=== PATIENT | female | born 1950 | race Caucasian/White ===

== ENCOUNTER 2016-10-27 00:38 | Emergency (ER) | payer BC ==
[~2016-10-27] VITALS: Ht 160 cm; Wt 79.8 kg
[2016-10-27 01:08] VITALS: BP 141/83
--- NOTE | 2016-10-27 02:29 | NUR ---
PATIENT TO ER BED 3
--- NOTE | 2016-10-27 02:30 | NUR ---
66Y F BIB SELF C/O UTI X 2 WEEKS DESPITE ABX GIVEN AT URGENT CARE. PT DENIES N/V/D; SKIN IS PINK/WARM/DRY; AAOX4 WITH EVEN AND STEADY GAIT; LUNGS CLEAR BL; HR EVEN AND REGULAR; PT DENIES ANY FEVER, CP, SOB, OR COUGH AT THIS TIME; PATIENT STATES PAIN OF 10/10 AT THIS TIME; VSS; PATIENT POSITIONED FOR COMFORT; HOB ELEVATED; BEDRAILS UP X2; BED DOWN. ER MD MADE AWARE OF PT STATUS.
--- NOTE | 2016-10-27 03:37 | NUR ---
Patient being evaluated by physician at bedside.
[2016-10-27] MEDS ORDERED: KETOROLAC 60 MG/2 ML VIAL IM ONE (03:45)
[2016-10-27 04:06] VITALS: BP 131/79
--- NOTE | 2016-10-27 04:06 | NUR ---
Patient discharged with v/s stable. Written and verbal after care instructions given and explained. Patient alert, oriented and verbalized understanding of instructions. Ambulatory with steady gait. All questions addressed prior to discharge. ID band removed. Patient advised to follow up with PMD. Rx of MOTRIN 800MG AND CIPRO 500MG given. Patient educated on indication of medication including possible reaction and side effects. Opportunity to ask questions provided and answered.
== END 2016-10-27 04:06 | disposition home or self-care (01) ==
LOC: MED 00:38
DX: N39.0 Urinary tract infection, site not specified (principal)
CPT/HCPCS: 81001; 87086; 87186; 96372; 99284; J1885